=== PATIENT | male | born 1960 | race African-American/Black ===

== ENCOUNTER 2016-09-02 10:01 | Inpatient (IN) | payer MEDICAID, OTHER ==
[2016-09-02] VITALS (7 sets, daily range): BP systolic 104–132; BP diastolic 55–75; PULSE 62–100; RESP 16–20; TEMP 98.5; O2SAT 96–99
[~2016-09-02] VITALS: Ht 177.8 cm; Wt 83.5 kg
[~2016-09-02 10:01] MED LIST: ASPI81TA82 PO; IBUP800T23 PO; METH500T3 PO
--- NOTE | 2016-09-02 10:11 | PD ---
HPI Chief Complaint: GI Complaint Time Seen by Provider: 10:11 Travel History International Travel<30 days: No Contact w/Intl Traveler<30days: No Traveled to known affect area: No History of Present Illness HPI 56-year-old male came to the emergency room with altered complains and in the form of abdominal pain, nausea and vomiting and his left ear feeling plugged. The symptoms have been going on for past 2 days. His family is there with him and said that he has been having trouble urinating. No history of diarrhea or constipation. Patient drinks alcohol 2-3 beers every day as per his own admission. However for past 3 days he has been able to take only one to 2 beers. He came in with some tachycardia. He is awake and answering questions appropriately. [facility] Past Medical History Narrative Medical List of his past medical, surgical, social and family history is reviewed from the nursing note. Blood Disorders: No Cancer: No Cardiovascular Problems: Yes (CABG) High Cholesterol: Yes Chest Pain: Yes Congestive Heart Failure: No Coronary Artery Disease: Yes Endocrine: No Genitourinary: No Immune Disorder: No Musculoskeletal: No Neurologic: No Psychiatric: No Reproductive: No Respiratory: No Past Surgical History Coronary Artery Bypass Graft: Yes (TRIPLE BYPASS 07/29/12) Other Surgery: Yes (CABG) Social History Alcohol Use: Yes (WEEKENDS) Tobacco Use: Yes (/ PPD) Substance Use: No (DENIES) Allergies-Medications (Allergen,Severity, Reaction): Coded Allergies: No Known Allergies (Unverified , 09/02/16) Comments No known drug allergies. Reported Meds & Prescriptions Reported Meds & Active Scripts Active Reported Aspirin EC Low Dose (Aspirin) 81 Mg Tabec 81 Mg PO DAILY Narrative Medication List of his home medications reviewed from the nursing note. Review of Systems Except as stated in HPI: all other systems reviewed are Neg Physical Exam Narrative GENERAL: Awake, alert, mild distress SKIN: Focused skin assessment warm/dry. HEAD: Atraumatic. Normocephalic. EYES: Pupils equal and round. Positive scleral icterus. No injection or drainage. ENT: No nasal bleeding or discharge. Mucous membranes pink and moist. NECK: Trachea midline. No JVD. CARDIOVASCULAR: Regular rate and rhythm. No murmur appreciated. RESPIRATORY: No accessory muscle use. Clear to auscultation. Breath sounds equal bilaterally. GASTROINTESTINAL: Abdomen soft, non-tender, nondistended. Hepatic and splenic margins not palpable. MUSCULOSKELETAL: No obvious deformities. No clubbing. No cyanosis. No edema. NEUROLOGICAL: Awake and alert. No obvious cranial nerve deficits. Motor grossly within normal limits. Normal speech. PSYCHIATRIC: Appropriate mood and affect; insight and judgment normal. Data Data Last Documented VS Vital Signs Date Time Temp Pulse Resp B/P Pulse Ox O2 Delivery O2 Flow Rate FiO2 09/02/16 14:29 77 16 132/66 99 Room Air 09/02/16 10:03 98.5 Orders Complete Blood Count With Diff (09/02/16 10:17) Comprehensive Metabolic Panel (09/02/16 10:17) Lipase (09/02/16 10:17) Urinalysis - C+S If Indicated (09/02/16 10:17) Iv Access Insert/Monitor (09/02/16 10:17) Ecg Monitoring (09/02/16 10:17) Oximetry (09/02/16 10:17) Morphine Inj (Morphine Inj) (09/02/16 10:30) Ondansetron Inj (Zofran Inj) (09/02/16 10:30) Sodium Chlor 0.9% 1000 Ml Inj (Ns 1000 M (09/02/16 10:17) Sodium Chloride 0.9% Flush (Ns Flush) (09/02/16 10:30) Electrocardiogram (09/02/16 ) Troponin I (09/02/16 10:17) Carbamide Peroxide 6.5% Otic (Debrox 6.5 (09/02/16 10:30) Sodium Chlor 0.9% 1000 Ml Inj (Ns 1000 M (09/02/16 11:00) Oral Contrast - Adult (09/02/16 ) Diatrizoate Liq ( Gastroview Liq) (09/02/16 11:34) Sodium Chlor 0.9% 1000 Ml Inj (Ns 1000 M (09/02/16 12:30) Creatine Kinase (Cpk) (09/02/16 12:23) Ct Abd/Pel W/O Iv Contrast (09/02/16 ) CKMB (09/02/16 10:30) CKMB% (09/02/16 10:30) Admit Order (Ed Use Only) (09/02/16 15:10) Labs Laboratory Tests Test 09/02/16 09/02/16 10:30 11:36 White Blood Count 9.7 TH/MM3 Red Blood Count 5.41 MIL/MM3 Hemoglobin 19.2 GM/DL Hematocrit 53.7 % Mean Corpuscular Volume 99.3 FL Mean Corpuscular Hemoglobin 35.4 PG Mean Corpuscular Hemoglobin 35.7 % Concent Red Cell Distribution Width 12.8 % Platelet Count 215 TH/MM3 Mean Platelet Volume 8.7 FL Neutrophils (%) (Auto) 73.2 % Lymphocytes (%) (Auto) 12.4 % Monocytes (%) (Auto) 13.3 % Eosinophils (%) (Auto) 0.6 % Basophils (%) (Auto) 0.5 % Neutrophils # (Auto) 7.1 TH/MM3 Lymphocytes # (Auto) 1.2 TH/MM3 Monocytes # (Auto) 1.3 TH/MM3 Eosinophils # (Auto) 0.1 TH/MM3 Basophils # (Auto) 0.0 TH/MM3 CBC Comment DIFF FINAL Differential Comment Sodium Level 130 MEQ/L Potassium Level 3.7 MEQ/L Chloride Level 97 MEQ/L Carbon Dioxide Level 24.1 MEQ/L Anion Gap 9 MEQ/L Blood Urea Nitrogen 56 MG/DL Creatinine 2.73 MG/DL Estimat Glomerular Filtration 29 ML/MIN Rate Random Glucose 111 MG/DL Calcium Level 8.8 MG/DL Total Bilirubin 0.8 MG/DL Aspartate Amino Transf 35 U/L (AST/SGOT) Alanine Aminotransferase 44 U/L (ALT/SGPT) Alkaline Phosphatase 82 U/L Total Creatine Kinase 373 U/L Creatine Kinase MB 3.7 NG/ML Creatine Kinase MB % 1.0 % Troponin I LESS THAN 0.02 NG/ML Total Protein 8.7 GM/DL Albumin 4.6 GM/DL Lipase 365 U/L Urine Color YELLOW Urine Turbidity HAZY Urine pH 5.5 Urine Specific [place] 1.025 Urine Protein TRACE mg/dL Urine Glucose (UA) NEG mg/dL Urine Ketones NEG mg/dL Urine Occult Blood NEG Urine Nitrite NEG Urine Bilirubin NEG Urine Urobilinogen LESS THAN 2.0 MG/DL Urine Leukocyte Esterase NEG Urine RBC 1 /hpf Urine WBC 2 /hpf Urine Squamous Epithelial 1 /hpf Cells Urine Transitional Epithelial <1 /hpf Cells Urine Hyaline Casts 30 /lpf Urine Mucus FEW /lpf Microscopic Urinalysis Comment CULT NOT INDICATED MDM Medical Decision Making Medical Screen Exam Complete: Yes Emergency Medical Condition: Yes Medical Record Reviewed: Yes Interpretation(s) Twelve-lead EKG was reviewed by me. Normal sinus rhythm, right bundle branch block. Heart rate of 87 bpm. Differential Diagnosis Acute pancreatitis, acute gastritis, acute cholecystitis, electrolyte Abnormality, dehydration Narrative Course 1:30 PM blood test results are back. Patient has significant polycythemia which could be from dehydration. Blood test is suggestive of acute renal failure especially when compared to the past blood test. Once again this goes more in favor of dehydration. I've given him 2 L of IV fluid bolus. Awaiting for the CT scan to be done and resulted. Patient has mild to moderate hyponatremia. CPK was mildly elevated. Procedures EKG Prior to Arrival: No Diagnosis Primary Impression: Acute renal failure Qualified Code: N17.9 - Acute renal failure, unspecified acute renal failure type Additional Impressions: Dehydration Polycythemia Admitting Information Admitting Physician Requests: it Ruth Lockett MD Sep 02, 2016 10:11
[2016-09-02] MEDS ORDERED: SODIUM CHLOR 0.9% 1000 ML INJ 1,000 ML IV SCH (10:17)
[2016-09-02] MEDS ORDERED: ASPI81TA2 PO (10:19)
[2016-09-02] MEDS ORDERED: MORPHINE SULFATE 4 MG/ML INJ IV PUSH ONE (10:30)
[2016-09-02] MEDS ORDERED: SODIUM CHLORIDE 0.9% FLUSH 10 ML FLUSH IV FLUSH PRN ×2 (10:30→15:15)
[2016-09-02] MEDS ORDERED: ONDANSETRON HCL 4 MG/2 ML VIAL IVP ONE (10:30)
[2016-09-02] MEDS ORDERED: CARBAMIDE PEROXIDE 6.5% OTIC SOLN 15 ML BTL LEFT EAR ONE (10:30)
[2016-09-02 10:41] LABS: AUTOMATED NEUTROPHIL # 7.1 TH/MM3 (1.8-7.7); BASOPHIL % 0.5 % (0.0-2.0); EOSINOPHIL # 0.1 TH/MM3 (0-0.4); EOSINOPHIL % 0.6 % (0.0-4.0); HEMATOCRIT 53.7 % (39.0-51.0); HEMO FLAGS DIFF FINAL; LYMPH % 12.4 % (9.0-44.0); LYMPHOCYTE # 1.2 TH/MM3 (1.0-4.8); MEAN CELL VOLUME 99.3 FL (80.0-100.0); MEAN CORPUSCULAR HEMOGLOBIN 35.4 PG (27.0-34.0); MEAN CORPUSCULAR HGB CONC 35.7 % (32.0-36.0); MONO % 13.3 % (0.0-8.0); NEUT % 73.2 % (16.0-70.0); PLATELET COUNT 215 TH/MM3 (150-450); RED BLOOD COUNT 5.41 MIL/MM3 (4.50-5.90); RED CELL DISTRIBUTION WIDTH 12.8 % (11.6-17.2); WHITE BLOOD COUNT 9.7 TH/MM3 (4.0-11.0)
[2016-09-02] MEDS ORDERED: SODIUM CHLOR 0.9% 1000 ML INJ 1,000 ML IV ONE ×2 (11:00→12:30)
[2016-09-02 11:04] LABS: ALT (GPT) 44 U/L (12-78); ANION GAP 9 MEQ/L (5-15); AST (GOT) 35 U/L (15-37); BICARBONATE 24.1 MEQ/L (21.0-32.0); BLOOD UREA NITROGEN 56 MG/DL (7-18); CHLORIDE 97 MEQ/L (98-107); GLOMERULAR FILTRATION RATE 29 ML/MIN (>89); SODIUM (NA) 130 MEQ/L (136-145)
[2016-09-02 11:05] LABS: ALKALINE PHOSPHATASE 82 U/L (45-117); POTASSIUM 3.7 MEQ/L (3.5-5.1); TOTAL BILIRUBIN ADULT 0.8 MG/DL (0.2-1.0)
[2016-09-02] MEDS ORDERED: DIATRIZOATE MEGLUM/DIATRIZOATE SOD 9 ML CUP ONE (11:34)
[2016-09-02 11:55] LABS: BLOOD, URINE NEG (NEG); GLUCOSE,URINE NEG (NEG); HYALINE CAST, URINE 30 /lpf (RARE); KETONE, URINE NEG (NEG); MUCUS URINE FEW /lpf (OCC); NITRITE,URINE NEG (NEG); PH, URINE 5.5 (5.0-8.5); SQUAMOUS EPITHELIAL CELL URINE 1 /hpf (0-5); TRANSITIONAL EPI CELLS, URINE <1 /hpf; URINE COLOR YELLOW (YELLW/STRAW)
[2016-09-02 12:05] LABS: COMMENT (UR) CULT NOT INDICATED; CULTURE IF INDICATED CULT NOT INDICATED
[2016-09-02 13:42] LABS: CKMB 3.7 NG/ML (0.5-3.6)
--- NOTE | 2016-09-02 14:35 | RADRPT ---
EXAM DATE/TIME: 09/02/2016 13:51 [place] COMPARISON: No previous studies available for comparison. INDICATIONS : Epigastric pain and vomiting. ORAL CONTRAST: Prescribed oral contrast ingested. RADIATION DOSE: 9.96 CTDIvol (mGy) MEDICAL HISTORY : Cardiovascular disease. Myocardial infarction. Anemia. SURGICAL HISTORY : CABG ENCOUNTER: Initial ACUITY: 3 days PAIN SCALE: 5/10 LOCATION: Bilateral upper quadrant TECHNIQUE: Volumetric scanning of the abdomen and pelvis was performed. Using automated exposure control and ad justment of the mA and/or kV according to patient size, radiation dose was kept as low as reasonably achievable to obtain optimal diagnostic quality images. DICOM format image data is available electro nically for review and comparison. FINDINGS: LOWER LUNGS: The visualized lower lungs are clear. LIVER: Homogeneous density without lesion. There is no dilation of the biliary tree. No calcified gallston es. SPLEEN: Normal size without lesion. PANCREAS: Within normal limits. KIDNEYS: Normal in size and shape. There is no mass, stone, or hydronephrosis. ADRENAL GLANDS: Within normal limits. VASCULAR: There is no aortic aneurysm. BOWEL/MESENTERY: Appendix is visualized and normal in appearance. Bowel appears unremarkable by CT with ingested contr ast extending to the splenic flexure. No evidence for obstruction. No significant free fluid or drain able fluid collection. ABDOMINAL WALL: Fat-containing periumbilical hernia. RETROPERITONEUM: There is no lymphadenopathy. BLADDER: No wall thickening or mass. REPRODUCTIVE: Within normal limits. INGUINAL: There is no lymphadenopathy or hernia. MUSCULOSKELETAL: No lytic or blastic bony lesions. Degenerative spondylosis of the lower lumbar spine with facet arthr opathy. CONCLUSION: 1. No definitive findings to explain patient's abdominal pain. 2. Normal appendix. 3. No radiopaque renal calculi or obstructive uropathy. 4. No evidence for bowel obstruction. Edward Price MD on September 02, 2016 at 14:26 Board Certified Radiologist. This report was verified electronically.
[2016-09-02] MEDS ORDERED: ONDANSETRON HCL 4 MG/2 ML VIAL IVP PRN (15:15)
[2016-09-02] MEDS ORDERED: MAGNESIUM HYDROXIDE SUSP 30 ML CUP PO PRN (15:15)
[2016-09-02] MEDS ORDERED: BISACODYL 10 MG SUPP RECTAL PRN (15:15)
[2016-09-02] MEDS ORDERED: SENNOSIDES 8.6 MG TAB PO PRN (15:15)
[2016-09-02] MEDS ORDERED: NALOXONE HCL 0.4 MG/ML AMP IV PRN (15:15)
[2016-09-02] MEDS ORDERED: LACTULOSE SYRUP 20 GM/30 ML CUP PO PRN (15:15)
[2016-09-02] MEDS ORDERED: ACETAMINOPHEN 325 MG TAB PO PRN (15:15)
--- NOTE | 2016-09-02 15:27 | HHI.HP ---
HPI Service [facility] Primary Care Physician Mikael Carlson MD Admission Diagnosis Diagnoses: Chief Complaint: abdominal pain/nausea/vomiting Travel History International Travel<30 Days: No Contact w/Intl Traveler <30 Da: No Traveled to Known Affected Are: No History of Present Illness Written by Fatimah Stahl, acting as scribe for Dr. Guillermo on 09/02/16 at 15:35. This note was transcribed by scribe DALILA Perez. I, Dr. Jones Guillermo personally performed the history, physical exam, and medical decision making; and confirmed the accuracy of the information in the transcribed note. Authenticated by Dr. Jones Guillermo on 09/02/16 at 23:56. 56-year-old male with CAD s/p CABG [id number] in 2013, HTN, HLD, presents with a 2 day history of nausea/vomiting and abdominal pain. The patient reports constant nausea and recurrent vomiting over the past 2 days. He also reports diffuse abdominal pain located at bilateral anterior rib cage, presented after intractable vomiting. Denies any diarrhea or constipation. He reports diminished urine output over the past 2 days, despite drinking multiple bottles of water. 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 He also reports drinking 6 beers this weekend which is more than usual for him. Denies any sick contacts. Denies taking any other medications other than a daily aspirin. Denies any history of kidney disease. Denies any fevers/chills, chest pain, palpitations, shortness of breath. He has no other medical complaints at this time. Review of Systems Except as stated in HPI: all other systems reviewed are Neg Past Family Social History Past Medical History CAD Hypertension Hyperlipidemia Past Surgical History CABG [id number] in 2013 Reported Medications Aspirin EC Low Dose (Aspirin) 81 Mg Tabec 81 Mg PO DAILY Allergies: Coded Allergies: No Known Allergies (Unverified , 09/02/16) Active Ordered Medications Current Medications Medications (Trade) Dose Ordered Sig/Kourtney Route Start Time Stop Time Status Last Admin (NS 1000 ml Inj) 1,000 ml @ 150 mls/hr Q6H40M IV 09/02/16 15:11 (NS Flush) 2 ml UNSCH PRN IV FLUSH 09/02/16 15:15 (NS Flush) 2 ml BID IV FLUSH 09/02/16 21:00 (Tylenol) 650 mg Q4H PRN PO 09/02/16 15:15 (Zofran Inj) 4 mg Q6H PRN IVP 09/02/16 15:15 (Heparin Inj) 5,000 units Q12H SQ 09/02/16 18:00 (Narcan Inj) 0.4 mg UNSCH PRN IV 09/02/16 15:15 ([place]-Colace) 1 tab BID PO 09/02/16 21:00 (Milk Of Magnesia Liq) 30 ml Q12H PRN PO 09/02/16 15:15 (Senokot) 17.2 mg Q12H PRN PO 09/02/16 15:15 (Dulcolax Supp) 10 mg DAILY PRN RECTAL 09/02/16 15:15 (Lactulose Liq) 30 ml DAILY PRN PO 09/02/16 15:15 Family History Denies any significant family history. Social History Smokes tobacco 1/2 PPD Drinks alcohol 1 drink a day usually Denies any illicit drug use Physical Exam Vital Signs Vital Signs Date Time Temp Pulse Resp B/P Pulse Ox O2 Delivery O2 Flow Rate FiO2 09/02/16 14:29 77 16 132/66 99 Room Air 09/02/16 12:43 77 16 116/75 98 Room Air 09/02/16 10:12 91 16 125/59 98 Room Air 09/02/16 10:03 98.5 100 20 104/61 96 Room Air Physical Exam GENERAL: Well-nourished, well-developed middle aged AA male patient in [facility]. SKIN: Warm and dry. No rash. HEAD: Normocephalic. Atraumatic. EYES: Pupils equal and round. No scleral icterus. No injection or drainage. ENT: No nasal bleeding or discharge. Dry mucous membranes. NECK: Supple. Trachea midline. CARDIOVASCULAR: Regular rate and rhythm. S1, S2 noted. No murmur appreciated. RESPIRATORY: No accessory muscle use. Clear to auscultation. Breath sounds equal bilaterally. GASTROINTESTINAL: Abdomen soft, non-tender, nondistended. Normoactive bowel sounds x4. MUSCULOSKELETAL: No obvious deformities. Extremities without clubbing, cyanosis , or edema. NEUROLOGICAL: Awake and alert. No obvious cranial nerve deficits. Motor grossly within normal limits. Moves all extremities spontaneously. Normal speech. PSYCHIATRIC: Appropriate mood and affect; insight and judgment normal. Laboratory Laboratory Tests Test 09/02/16 09/02/16 10:30 11:36 White Blood Count 9.7 Red Blood Count 5.41 Hemoglobin 19.2 Hematocrit 53.7 Mean Corpuscular Volume 99.3 Mean Corpuscular Hemoglobin 35.4 Mean Corpuscular Hemoglobin 35.7 Concent Red Cell Distribution Width 12.8 Platelet Count 215 Mean Platelet Volume 8.7 Neutrophils (%) (Auto) 73.2 Lymphocytes (%) (Auto) 12.4 Monocytes (%) (Auto) 13.3 Eosinophils (%) (Auto) 0.6 Basophils (%) (Auto) 0.5 Neutrophils # (Auto) 7.1 Lymphocytes # (Auto) 1.2 Monocytes # (Auto) 1.3 Eosinophils # (Auto) 0.1 Basophils # (Auto) 0.0 CBC Comment DIFF FINAL Differential Comment Sodium Level 130 Potassium Level 3.7 Chloride Level 97 Carbon Dioxide Level 24.1 Anion Gap 9 Blood Urea Nitrogen 56 Creatinine 2.73 Estimat Glomerular Filtration 29 Rate Random Glucose 111 Calcium Level 8.8 Total Bilirubin 0.8 Aspartate Amino Transf 35 (AST/SGOT) Alanine Aminotransferase 44 (ALT/SGPT) Alkaline Phosphatase 82 Total Creatine Kinase 373 Creatine Kinase MB 3.7 Creatine Kinase MB % 1.0 Troponin I LESS THAN 0.02 Total Protein 8.7 Albumin 4.6 Lipase 365 Urine Color YELLOW Urine Turbidity HAZY Urine pH 5.5 Urine Specific [place] 1.025 Urine Protein TRACE Urine Glucose (UA) NEG Urine Ketones NEG Urine Occult Blood NEG Urine Nitrite NEG Urine Bilirubin NEG Urine Urobilinogen LESS THAN 2.0 Urine Leukocyte Esterase NEG Urine RBC 1 Urine WBC 2 Urine Squamous Epithelial 1 Cells Urine Transitional Epithelial <1 Cells Urine Hyaline Casts 30 Urine Mucus FEW Microscopic Urinalysis Comment CULT NOT INDICATED Result Diagram: 09/02/16 1030 09/02/16 1030 Imaging Last Impressions Abdomen/Pelvis CT 09/02/16 0000 Signed Impressions: Service Date/Time: August 13:51 - CONCLUSION: 1. No definitive findings to explain patient's abdominal pain. 2. Normal appendix. 3. No radiopaque renal calculi or obstructive uropathy. 4. No evidence for bowel obstruction. Edward Price MD Assessment and Plan Problem List: (1) Acute renal failure ICD Code: N17.9 Status: Acute (2) Dehydration ICD Code: E86.0 Status: Acute (3) Polycythemia ICD Code: D75.1 Status: Acute (4) Nausea & vomiting ICD Code: R11.2 Status: Acute (5) Hyponatremia ICD Code: E87.1 Status: Acute Assessment and Plan 56-year-old male with CAD s/p CABG [id number] in 2012, HTN, HLD, presents with a 2 day history of nausea/vomiting and abdominal pain. Acute Renal Failure: Cr 2.73, previously 1.07 in 2013, and 1.34 in 2016. No hx of CKD. Suspect prerenal secondary to severe dehydration with excessive heat exposure and recent nausea/vomiting. UA normal. -Given IVF bolus x3L in the ER -Continue IVF NS at 150cc/hr -Avoid nephrotoxins -Repeat BMP in am -consider renal U/S if no improvement Nausea/Vomiting/Abdominal Pain: Suspect gastroenteritis. Contributing to dehydration. Symptoms improved after IVF boluses and IV zofran in the ED. -Abd/pelvis CT images reviewed, shows no acute findings to explain abdominal pain. -Labs reviewed, lipase wnl, LFTs wnl, no leukocytosis -Continue supportive treatment with IVF, antiemetics, and pain control prn Hyponatremia: Na 130, suspect secondary to dehydration -Continue IVF -Repeat BMP in am Mild Rhabdomyolysis: CPK mildly elevated at 373. Suspect secondary to severe dehydration. -continue IVF -repeat CPK in the am Polycythemia: suspect secondary to hemoconcentration from dehydration. -continue IVF -repeat CBC in am DVT Prophylaxis: Heparin Code Status Full Code Discussed Condition With Patient, ER MD Physician Certification 2 Midnight Certification Type: Admission for Inpatient Services Order for Inpatient Services The services are ordered in accordance with Medicare regulations or non- Medicare payer requirements, as applicable. In the case of services not specified as inpatient-only, they are appropriately provided as inpatient services in accordance with the 2-midnight benchmark. Estimated LOS (days): 2 days is the estimated time the patient will need to remain in the hospital, assuming treatment plan goals are met and no additional complications. Post-Hospital Plan: Home Problem Qualifiers (1) Acute renal failure: Qualified Code: N17.9 - Acute renal failure, unspecified acute renal failure type Fatimah Stahl PA-C Sep 02, 2016 15:27 Alisha Guillermo DO Sep 02, 2016 23:56
[2016-09-02] MEDS: SODIUM CHLOR 0.9% 1000 ML INJ 1,000 ML IV SCH ×2 (16:59→22:35)
[2016-09-02] MEDS: HEPARIN SODIUM - SQ 10,000 UNITS/ML VIAL SQ SCH (16:59)
--- NOTE | 2016-09-02 17:16 | EKG ---
Date Performed: 09/02/2016 Time Performed: 10:22:45 PTAGE: 56 years EKG: Sinus rhythm POSSIBLE LEFT ATRIAL ENLARGEMENT POSSIBLE RIGHT VENTRICULAR CONDUCTION DELAY POSSIBLE INFERIOR MYOCA RDIAL INFARCTION Nonspecific T wave changes Compared to prior electrocardiogram, rate has increased. PREVIOUS TRACING : 05/07/2013 08.13 DOCTOR: Sal Shelley Interpretating Date/Time 09/02/2016 17:16:16
[2016-09-02] MEDS: DOCUSATE SODIUM 50 MG/SENNA 8.6 MG TAB PO SCH (21:00)
[2016-09-02] MEDS: SODIUM CHLORIDE 0.9% FLUSH 10 ML FLUSH IV FLUSH SCH (21:27)
[2016-09-03] VITALS: BP 97/55; PULSE 60; RESP 16; TEMP 97.4; O2SAT 98
[2016-09-03] MEDS: SODIUM CHLOR 0.9% 1000 ML INJ 1,000 ML IV SCH ×2 (04:29→11:11)
[2016-09-03] MEDS: HEPARIN SODIUM - SQ 10,000 UNITS/ML VIAL SQ SCH (06:04)
[2016-09-03 06:30] LABS: AUTOMATED NEUTROPHIL # 2.4 TH/MM3 (1.8-7.7); BASOPHIL % 0.3 % (0.0-2.0); EOSINOPHIL % 0.2 % (0.0-4.0); HEMATOCRIT 43.4 % (39.0-51.0); HEMO FLAGS DIFF FINAL; LYMPH % 32.2 % (9.0-44.0); LYMPHOCYTE # 1.6 TH/MM3 (1.0-4.8); MEAN CELL VOLUME 100.6 FL (80.0-100.0); MEAN CORPUSCULAR HEMOGLOBIN 34.3 PG (27.0-34.0); MONO % 17.5 % (0.0-8.0); NEUT % 49.8 % (16.0-70.0); PLATELET COUNT 151 TH/MM3 (150-450); RED BLOOD COUNT 4.31 MIL/MM3 (4.50-5.90); WHITE BLOOD COUNT 4.9 TH/MM3 (4.0-11.0)
[2016-09-03 07:09] LABS: POTASSIUM 3.9 MEQ/L (3.5-5.1)
[2016-09-03 08:00] VITALS: BP_SYST 100; BP_SYST 92; BP_DIAS 57; BP_DIAS 62; PULSE 61; RESP 20; TEMP 98.3; O2SAT 100
[2016-09-03] MEDS: SODIUM CHLORIDE 0.9% FLUSH 10 ML FLUSH IV FLUSH SCH (08:59)
[2016-09-03] MEDS: DOCUSATE SODIUM 50 MG/SENNA 8.6 MG TAB PO SCH (09:04)
--- NOTE | 2016-09-03 11:56 | HHI.PR ---
Subjective Remarks Follow-up for dehydration, acute kidney injury. Patient is currently doing well. Denies any chest pain, shortness of breath, fever or chills. Denies any nausea or vomiting. Tolerating diet well. Objective Vitals Vital Signs Date Time Temp Pulse Resp B/P Pulse Ox O2 Delivery O2 Flow Rate FiO2 09/03/16 08:00 98.3 61 20 100/62 100 09/03/16 00:00 97.4 60 16 97/55 98 09/02/16 21:34 113/69 09/02/16 18:43 69 18 118/55 98 Room Air 09/02/16 16:59 62 16 104/64 98 Room Air 09/02/16 14:29 77 16 132/66 99 Room Air 09/02/16 12:43 77 16 116/75 98 Room Air I/O 09/02/16 09/02/16 09/02/16 09/03/16 09/03/16 09/03/16 07:00 15:00 23:00 07:00 15:00 23:00 Intake Total 200 ml Output Total 500 ml 200 ml Balance -500 ml -200 ml 200 ml Intake Oral 200 ml Output Urine Total 500 ml 200 ml # Voids 1 1 0 # Bowel Movements 0 Result Diagram: 09/03/16 0601 09/03/16 0607 Imaging Last Impressions Abdomen/Pelvis CT 09/02/16 0000 Signed Impressions: Service Date/Time: August 13:51 - CONCLUSION: 1. No definitive findings to explain patient's abdominal pain. 2. Normal appendix. 3. No radiopaque renal calculi or obstructive uropathy. 4. No evidence for bowel obstruction. Edward Price MD Objective Remarks GENERAL: Alert, oriented 3, NAD. SKIN: Warm and dry. HEAD: Normocephalic. EYES: No scleral icterus. No injection or drainage. NECK: Supple, trachea midline. No JVD or lymphadenopathy. CARDIOVASCULAR: Regular rate and rhythm without murmurs, gallops, or rubs. RESPIRATORY: Breath sounds equal bilaterally. No accessory muscle use. GASTROINTESTINAL: Abdomen soft, non-tender, nondistended. MUSCULOSKELETAL: No cyanosis, or edema. BACK: Nontender without obvious deformity. No CVA tenderness. Procedures None A/P Problem List: (1) Acute renal failure ICD Code: N17.9 Status: Acute (2) Dehydration ICD Code: E86.0 Status: Acute (3) Polycythemia ICD Code: D75.1 Status: Acute (4) Nausea & vomiting ICD Code: R11.2 Status: Acute (5) Hyponatremia ICD Code: E87.1 Status: Acute Assessment and Plan 56-year-old male with CAD s/p CABG [id number] in 2012, HTN, HLD, presents with a 2 day history of nausea/vomiting and abdominal pain. Acute Renal Failure: Cr 2.73, previously 1.07 in 2013, and 1.34 in 2016. No hx of CKD. Suspect prerenal secondary to severe dehydration with excessive heat exposure and recent nausea/vomiting. UA normal. -Given IVF bolus x3L in the ER -Continue IVF NS at 150cc/hr -Avoid nephrotoxins -Repeat BMP shows resolution of acute kidney injury. Total CK improved from 373 --> 241 Nausea/Vomiting/Abdominal Pain: Suspect gastroenteritis. Contributing to dehydration. Symptoms improved after IVF boluses and IV zofran in the ED. -Abd/pelvis CT images reviewed, shows no acute findings to explain abdominal pain. -Labs reviewed, lipase wnl, LFTs wnl, no leukocytosis -Continue supportive treatment with IVF, antiemetics, and pain control prn Hyponatremia: Na 130, suspect secondary to dehydration. Repeat BMP shows sodium 140. -Continue IVF Mild Rhabdomyolysis: CPK mildly elevated at 373. Suspect secondary to severe dehydration. -continue IVF -repeat CPK shows 241. Polycythemia: suspect secondary to hemoconcentration from dehydration. -continue IVF -repeat CBC shows hemoglobin 14.8, hematocrit 43.4. On admission patient's hemoglobin was 19.2 and hematocrit 53.7. DVT Prophylaxis: Heparin - Patient had a remarkable response to treatment with more rapid improvement than expected. Thus patient will be discharged home. Patient was encouraged to continue to keep himself hydrated especially when he is outside working. Patient was also advised to limit outside exposure during hot and souleymane weather. Patient is also advised to follow-up with his PCP. Discharge patient to home Condition on discharge: Improved Regular Diet as tolerated Ad Anastasia activity Rx written: No new medication. Follow-up with primary care physician within one week. Problem Qualifiers (1) Acute renal failure: Qualified Code: N17.9 - Acute renal failure, unspecified acute renal failure type Alisha Guillermo DO Sep 03, 2016 11:55
[2016-09-03 12:00] VITALS: BP 97/62; PULSE 60; RESP 20; TEMP 97.8; O2SAT 98
== END 2016-09-03 17:00 | disposition home or self-care (01) | DRG 683 ==
LOC: NEPD 10:01 → NEDA 15:12 → N06B 22:48
PROVIDERS: ADMIT Hospitalist; ATTEND Hospitalist
DX: N17.9 Acute kidney failure, unspecified (principal); E87.1 Hypo-osmolality and hyponatremia; M62.82 Rhabdomyolysis; D75.1 Secondary polycythemia; R11.2 Nausea with vomiting, unspecified; E86.0 Dehydration; K52.9 Noninfective gastroenteritis and colitis, unspecified; I10 Essential (primary) hypertension; I25.10 Atherosclerotic heart disease of native coronary artery without angina pectoris; Z95.1 Presence of aortocoronary bypass graft; E78.5 Hyperlipidemia, unspecified; F17.210 Nicotine dependence, cigarettes, uncomplicated; Z79.82 Long term (current) use of aspirin; T67.8XXA Other effects of heat and light, initial encounter; X58.XXXA Exposure to other specified factors, initial encounter
CPT/HCPCS: 74176; 80048; 80053; 81001; 82550; 82552; 83690; 84484; 85025; 93005; 96361; 96374; 96375; J1644; J2270; J2405; J7030; Q9963

== ENCOUNTER 2017-04-06 11:44 | Emergency (ER) | payer BC, MEDICAID ==
[~2017-04-06] VITALS: Ht 177.8 cm; Wt 75.0 kg
[~2017-04-06 11:44] MED LIST changes: +ASPI81TA22 PO; -ASPI81TA82 PO; -IBUP800T23 PO; -METH500T3 PO
[2017-04-06 11:50] VITALS: BP 103/62; PULSE 61; RESP 16; TEMP 98; O2SAT 98
[2017-04-06] MEDS ORDERED: SODIUM CHLOR 0.9% 1000 ML INJ 1,000 ML IV ONE (11:53)
[2017-04-06] MEDS ORDERED: MELO7.5T27 PO (11:58)
[2017-04-06] MEDS ORDERED: METO1TAB42 PO (11:58)
[2017-04-06] MEDS ORDERED: ATOR10TA15 PO (11:58)
[2017-04-06] MEDS ORDERED: LISI-519 PO (11:58)
[2017-04-06 12:00] VITALS: BP 98/63; PULSE 70; RESP 16; O2SAT 98
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
[2017-04-06 12:16] LABS: BASOPHIL % 0.4 % (0.0-2.0); EOSINOPHIL # 0.1 TH/MM3 (0-0.4); HEMATOCRIT 41.7 % (39.0-51.0); HEMOGLOBIN 14.5 GM/DL (13.0-17.0); LYMPH % 34.6 % (9.0-44.0); LYMPHOCYTE # 1.8 TH/MM3 (1.0-4.8); MEAN CELL VOLUME 100.3 FL (80.0-100.0); MEAN CORPUSCULAR HEMOGLOBIN 34.9 PG (27.0-34.0); MEAN CORPUSCULAR HGB CONC 34.7 % (32.0-36.0); MONO % 7.7 % (0.0-8.0); MONOCYTE # 0.4 TH/MM3 (0-0.9); NEUT % 56.3 % (16.0-70.0); PLATELET COUNT 182 TH/MM3 (150-450); RED BLOOD COUNT 4.16 MIL/MM3 (4.50-5.90); RED CELL DISTRIBUTION WIDTH 12.8 % (11.6-17.2); WHITE BLOOD COUNT 5.3 TH/MM3 (4.0-11.0)
[2017-04-06 12:31] LABS: INTERNATIONAL NORMALIZED RATIO 1.1 RATIO; PROTHROMBIN TIME - PATIENT 10.7 SEC (9.8-11.6)
[2017-04-06 12:32] LABS: ALBUMIN 3.4 GM/DL (3.4-5.0); ALT (GPT) 34 U/L (12-78); AST (GOT) 29 U/L (15-37); BICARBONATE 25.7 MEQ/L (21.0-32.0); BLOOD UREA NITROGEN 10 MG/DL (7-18); CALCIUM 8.3 MG/DL (8.5-10.1); CHLORIDE 106 MEQ/L (98-107); CREATININE 1.05 MG/DL (0.60-1.30); GLOMERULAR FILTRATION RATE 88 ML/MIN (>89); GLUCOSE,RANDOM 97 MG/DL (74-106); SODIUM (NA) 140 MEQ/L (136-145)
--- NOTE | 2017-04-06 12:35 | RADRPT ---
EXAM DATE/TIME: 04/06/2017 12:00 [facility] COMPARISON: No previous studies available for comparison. INDICATIONS : Shortness of breath and lightheaded. MEDICAL HISTORY : None. SURGICAL HISTORY : Triple bypass. ENCOUNTER: Initial ACUITY: 1 day PAIN SCORE: 0/10 LOCATION: Bilateral chest FINDINGS: Lungs are hyperinflated. There is no evidence of acute air space disease congestion or suspicious den sities. Median sternotomy wires from prior open heart surgery noted. Heart remains normal in size. Osseous structures are otherwise intact. CONCLUSION: 1. Status post open heart surgery. 2. COPD. 3. No acute cardiopulmonary process. Jesse Alvarez MD on April 06, 2017 at 12:31 Board Certified Radiologist. This report was verified electronically.
[2017-04-06 12:36] LABS: ALKALINE PHOSPHATASE 69 U/L (45-117); TOTAL BILIRUBIN ADULT 0.4 MG/DL (0.2-1.0); TOTAL PROTEIN 6.7 GM/DL (6.4-8.2); TROPONIN I LESS THAN 0.02 NG/ML (0.02-0.05)
--- NOTE | 2017-04-06 12:57 | RADRPT ---
EXAM DATE/TIME: 04/06/2017 12:25 [facility] COMPARISON: No previous studies available for comparison. INDICATIONS : Syncopal episode. Right facial abrasions. RADIATION DOSE: 35.34 CTDIvol (mGy) MEDICAL HISTORY : Cardiovascular disease. SURGICAL HISTORY : None. ENCOUNTER: Initial ACUITY: 1 day PAIN SCALE: 4/10 LOCATION: Right facial TECHNIQUE: Multiple contiguous axial images were obtained of the head. Using automated exposure control and adj ustment of the mA and/or kV according to patient size, radiation dose was kept as low as reasonably a chievable to obtain optimal diagnostic quality images. DICOM format image data is available electro nically for review and comparison. FINDINGS: CEREBRUM: The ventricles are normal for age. No evidence of midline shift, mass lesion, hemorrhage or acute in farction. No extra-axial fluid collections are seen. POSTERIOR FOSSA: The cerebellum and brainstem are intact. The 4th ventricle is midline. The cerebellopontine angle i s unremarkable. EXTRACRANIAL: The visualized portion of the orbits is intact. SKULL: The calvaria is intact. No evidence of skull fracture. CONCLUSION: No acute disease. Jesse Alvarez MD on April 06, 2017 at 12:54 Board Certified Radiologist. This report was verified electronically.
--- NOTE | 2017-04-06 13:00 | RADRPT ---
EXAM DATE/TIME: 04/06/2017 12:25 [facility] COMPARISON: No previous studies available for comparison. INDICATIONS : Syncopal episode. Right facial abrasions. RADIATION DOSE: 17.27 CTDIvol (mGy) MEDICAL HISTORY : Cardiovascular disease. SURGICAL HISTORY : None. ENCOUNTER: Initial ACUITY: 1 day PAIN SCALE: 4/10 LOCATION: Right facial TECHNIQUE: Volumetric scanning of the cervical spine was performed. Multiplanar reconstructions in the sagittal, coronal and oblique axial planes were performed. Using automated exposure control and adjustment o f the mA and/or kV according to patient size, radiation dose was kept as low as reasonably achievable to obtain optimal diagnostic quality images. DICOM format image data is available electronically f or review and comparison. FINDINGS: VERTEBRAE: Normal vertebral body height. No fracture is identified. There is a small amount of soft tissue air a djacent to the right C1 vertebral body. ALIGNMENT: No anterolisthesis or retrolisthesis. The craniocervical junction and C1-C2 level demonstrate no acute finding. C2-C3: There is mild bilateral facet arthrosis. No disc herniation, canal stenosis, or neural foraminal sten osis is present. C3-C4: There is a small central disc protrusion with posterior osteophytic ridging. No spinal canal stenosis or neural foraminal narrowing is seen. C4-C5: Endplate osteophytes are present anteriorly. There is mild posterior disc osteophyte complex. No sign ificant spinal canal stenosis or neural foraminal narrowing is present. C5-C6: There is facet arthrosis bilaterally with posterior disc osteophyte complex and small uncovertebral o steophytes. No spinal canal stenosis is present. There is moderate to severe bilateral neural foramin al narrowing. C6-C7: There is left facet arthrosis. No disc herniation or canal stenosis is present. There is mild narrowi ng of the left neural foramen. C7-T1: There are endplate osteophytes anteriorly. No disc herniation, canal stenosis, or neural foraminal st enosis is visualized. There are emphysematous changes at the lung apices. CONCLUSION: 1. There is air within the soft tissue adjacent to the right aspect of the C1 level. This is from unc ertain etiology. No associated fracture is identified. 2. Otherwise, there are mild degenerative changes throughout the cervical spine, as detailed above. T here is moderate to severe bilateral neural foraminal narrowing at C5-C6. Mikael Fry MD on April 06, 2017 at 12:54 Board Certified Radiologist. This report was verified electronically.
--- NOTE | 2017-04-06 13:08 | RADRPT ---
EXAM DATE/TIME: 04/06/2017 12:25 [facility] COMPARISON: No previous studies available for comparison. INDICATIONS : Syncopal episode. Right facial abrasions. RADIATION DOSE: 60.61 CTDIvol (mGy) MEDICAL HISTORY : Cardiovascular disease. SURGICAL HISTORY : None. ENCOUNTER: Initial ACUITY: 1 day PAIN SCORE: 4/10 LOCATION: Right cranial TECHNIQUE: Volumetric scanning of the facial bones was performed. Using automated exposure control and adjustme nt of the mA and/or kV according to patient size, radiation dose was kept as low as reasonably achiev able to obtain optimal diagnostic quality images. DICOM format image data is available electronicall y for review and comparison. FINDINGS: ORBITS: The orbital structures are intact. The retroconal structures have a normal configuration. No radiop aque foreign bodies are seen. The lenses are normally located. NASAL BONE: The nasal bones and maxillary spine are intact. ZYGOMATIC ARCHES: Symmetric without evidence of fracture. SINUSES: The maxillary, ethmoid, and frontal sinuses demonstrate no acute finding. No air-fluid levels seen. NASAL CAVITY: The nasal septum is intact and midline. The lacrimal ducts are intact. SOFT TISSUES: No radiopaque foreign bodies seen. No soft-tissue swelling is seen. INTRACRANIAL: There is air within the cavernous sinus. OTHER: The mandible and pterygoid plates are intact. There is a dilated air-filled sac extending through the left thyrohyoid membrane. CONCLUSION: 1. No maxillofacial fracture is identified. 2. There is a small amount of cavernous sinus air and air identified within some of the venous struct ures. This is related to retrograde venous air. This can be seen in associated with IV access. 3. Left sided laryngocele. Mikael Fry MD on April 06, 2017 at 13:01 Board Certified Radiologist. This report was verified electronically.
[2017-04-06 13:42] LABS: BILIRUBIN, URINE NEG (NEG); BLOOD, URINE NEG (NEG); GLUCOSE,URINE NEG (NEG); HYALINE CAST, URINE 6 /lpf (RARE); KETONE, URINE NEG (NEG); MUCUS URINE FEW /lpf (OCC); NITRITE,URINE NEG (NEG); SQUAMOUS EPITHELIAL CELL URINE <1 /hpf (0-5); TRANSITIONAL EPI CELLS, URINE <1 /hpf; URINE COLOR YELLOW (YELLW/STRAW); URINE LEUKOCYTE ESTERASE NEG (NEG)
[2017-04-06 14:15] VITALS: BP_SYST 115; BP_SYST 121; BP_DIAS 68; BP_DIAS 70; BP_DIAS 74; RESP 15; RESP 16
[2017-04-06 15:03] VITALS: BP 119/68
--- NOTE | 2017-04-07 11:32 | EKG ---
Date Performed: 04/06/2017 Time Performed: 12:02:11 PTAGE: 57 years EKG: Sinus rhythm POSSIBLE RIGHT VENTRICULAR CONDUCTION DELAY BORDERLINE ECG Since the prior tracing, there has been n o significant change PREVIOUS TRACING : 09/02/2016 10.22 DOCTOR: Miky Becerra Interpretating Date/Time 04/07/2017 11:29:50
== END 2017-04-06 15:04 | disposition home or self-care (01) ==
LOC: NEPC 11:44
DX: E86.0 Dehydration (principal); R55 Syncope and collapse; R94.31 Abnormal electrocardiogram [ECG] [EKG]; E78.00 Pure hypercholesterolemia, unspecified; I25.10 Atherosclerotic heart disease of native coronary artery without angina pectoris; F17.210 Nicotine dependence, cigarettes, uncomplicated; Z95.1 Presence of aortocoronary bypass graft; Z79.82 Long term (current) use of aspirin
CPT/HCPCS: 70450; 70486; 71045; 72125; 80053; 81001; 84484; 85025; 85610; 85730; 93005; 99285; J7030

== ENCOUNTER 2017-04-24 15:19 | Emergency (ER) | payer SELFPAY ==
[~2017-04-24] VITALS: Ht 180.3 cm; Wt 75.0 kg
[~2017-04-24 15:19] MED LIST changes: +ATOR10TA15 PO; +LISI-519 PO; +MELO7.5T27 PO; +METO1TAB42 PO
[2017-04-24 15:27] VITALS: BP 119/64; PULSE 116; RESP 17; TEMP 98.1; O2SAT 98
== END 2017-04-24 18:09 | disposition left against medical advice (07) ==
LOC: NED 15:19
DX: R04.0 Epistaxis (principal)
CPT/HCPCS: 99281